=== PATIENT | female | born 1980 | race Caucasian/White ===

== ENCOUNTER → 2018-02-11 15:06 | Outpatient (POV) | payer BC, SELFPAY | PROVIDERS: Visit Provider Physician Assistant | DX: Z00.00 Encounter for general adult medical examination without abnormal findings (principal) ==

== ENCOUNTER 2020-11-26 11:21 | Emergency (ER) | payer OTHER, SELFPAY ==
[2020-11-26] VITALS (8 sets, daily range): BP systolic 129–157; BP diastolic 70–84; PULSE 52–74; RESP 12–22; TEMP 36.5–36.7; O2SAT 96–100; BMI 33.6
--- NOTE | 2020-11-26 11:38 | XR_ITS ---
PROCEDURE: XR CHEST PORTABLE CLINICAL HISTORY: cough COMPARISON: CR CXR CHEST(2 VIEWS-NOT PORTABLE) from 04/19/2013 FINDINGS: The cardiomediastinal silhouette and pulmonary vascularity are within normal limits. The lungs are clear without infiltrates, suspicious nodules, or pleural effusions. No acute bony abnormalities. IMPRESSION: No acute findings. Dictated by: Michelle Menendez 11/26/2020 13:06 Michelle Menendez in [facility] 11/26/2020 13:06
--- NOTE | 2020-11-26 11:55 | HMH.EDDIZZ ---
ED Disposition Clinical Impression: Benign paroxysmal positional vertigo Qualifiers: Laterality: bilateral Qualified Code(s): H81.13 - Benign paroxysmal vertigo, bilateral Migraine Qualifiers: Migraine type: without aura Status migrainosus presence: without status migrainosus Intractability: not intractable Qualified Code(s): G43.009 - Migraine without aura, not intractable, without status migrainosus Disposition: Home, Self-Care Condition on Discharge: Good Instructions: Vertigo Prescriptions: Meclizine HCl [Meclizine 25mg Tab] 25 mg PO BID #10 tab Transmission Status: Pending to [facility] Referrals: Brett Mcclain MD [Primary Care Provider] - - Critical Care Critical Care Time: No Attestation: On 11/26/20, the high probability of a clinically significant, sudden or life threatening deterioration of the following system(s) required my full and direct attention, intervention and personal management. The time I documented below is in addition to time spent performing reported procedures but includes the following listed in this critical care notation. Medical Decision Making - Medical Records Medical records reviewed: Yes: I reviewed the patient's medical records. - Nikita Inquiry Pt receiving controlled substance: No Vital Signs: 11/26/20 11:44 11/26/20 12:01 11/26/20 12:30 Temperature 98.1 F Temperature Source Oral Pulse Rate 60 59 L Pulse Rate [Right] 74 Respiratory Rate 17 22 12 Blood Pressure 138/84 130/70 Blood Pressure [Right Arm] 157/82 H Blood Pressure Mean 107 90 Blood Pressure Mean [Right Arm] 107 02 Sat by Pulse Oximetry 98 99 100 Oxygen Delivery Method Room Air - Lab Data Lab Results 11/26/20 11:59: WBC 8.3, RBC 5.23, Hgb 16.1, Hct 45.9, MCV 87.8, MCH 30.7, MCHC 35.0, RDW 13.5, Plt Count 373, MPV 7.8, Neut % (Auto) 49.4, Lymph % (Auto) 42.8, Mcintosh % (Auto) 5.3, Eos % (Auto) 1.1, Baso % (Auto) 1.4, Neut # (Auto) 4.1, Lymph # (Auto) 3.5, Mcintosh # (Auto) 0.4, Eos # (Auto) 0.1, Baso # (Auto) 0.1 11/26/20 11:59: Sodium 140, Potassium 3.1 L, Chloride 110 H, Carbon Dioxide 18 L, Anion Gap 15.1 H, BUN 12, Creatinine 0.70, Estimated Creat Clear 139, Estimated GFR 94, Est GFR ( Amer) 113, Glucose 90, Calcium 9.7, Total Bilirubin 0.7, AST 35, ALT 30, Alkaline Phosphatase 121, Troponin I < 0.01, Total Protein 8.5 H, Albumin 4.8, Globulin 3.7 H, Albumin/Globulin Ratio 1.3, TSH 2.96 11/26/20 13:23: Urine Color Yellow, Urine Appearance Clear, Urine pH 7.5, Ur Specific [place] 1.015, Urine Protein Negative, Urine Glucose (UA) Negative, Urine Ketones Negative, Urine Blood 2+, Urine Nitrate Negative, Urine Bilirubin Negative, Urine Urobilinogen 0.2, Ur Leukocyte Esterase Negative, Urine RBC 5-10, Urine WBC None, Ur Squamous Epith Cells Occasional, Urine Bacteria None 11/26/20 13:23: Urine HCG, Qual Negative Result diagrams: 11/26/20 11:59 11/26/20 11:59 Orders (Tests/Meds): ED MEDICATIONS Discontinued Medications Generic Name Dose Route Start Last Admin Trade Name Freq PRN Reason Stop Dose Admin Sodium Chloride 1,000 mls @ 999 mls/hr 11/26/20 11:45 11/26/20 11:52 Sod Chlor 0.9% 1000ml Bag IV 11/26/20 12:45 999 mls/hr .Q1H1M MIESHA Administration Meclizine HCl 25 mg 11/26/20 11:40 11/26/20 11:52 Meclizine 25mg Tablet PO 11/26/20 11:41 25 mg ONCE ONE Administration Potassium Chloride 40 meq 11/26/20 12:33 11/26/20 12:49 Potassium Chloride 20meq Tab PO 11/26/20 12:34 40 meq ONCE ONE Administration ORDERS Category Date Time Status Troponin I Q3H Lab 11/26/20 14:45 Ordered Troponin I Q3H Lab 11/26/20 17:45 Ordered - Radiology Data #1 Image(s): Chest Image Reviewed: Yes I reviewed the patient's radiology results, Yes I discussed the image results w/the radiologist Preliminary Findings: Normal/NAD - ECG Data Tracing #1 ECG initial impression date: 11/26/20 ECG initial impression time: 11:59 ECG normal
--- NOTE | 2020-11-26 11:58 | ECG_ITS ---
APPROVED REPORT Exam: Resting ECG HR:59 bpm ECG Measurements Heart Rate 59 AXES WV 120 P 30 QRSd 86 QRS 56 QT 416 T 45 QTc 411 Conclusion Sinus bradycardia Otherwise normal ECG Electronically signed by : Kam Acuna, 11/27/2020 07:41:26
[2020-11-26 12:12] LABS: Basophils # 0.1 K/mm3 (0-0.2); Basophils % 1.4 % (0.1-2.0); Eosinophils # 0.1 K/mm3 (0.0-0.4); Eosinophils % 1.1 % (0.1-12.0); Hematocrit 45.9 % (37.0-47.0); Hemoglobin 16.1 g/dL (12.2-16.2); Lymphocytes # 3.5 K/mm3 (0.7-4.5); Lymphocytes % 42.8 % (10-50); Mean Corpuscular Hemoglobin 30.7 pg (27.0-31.2); Mean Corpuscular Volume 87.8 fl (81-99); Mean Platelet Volume 7.8 fl (7.4-10.4); Monocytes # 0.4 K/mm3 (0.1-1.0); Monocytes % 5.3 % (1.7-9.3); Neutrophils # 4.1 K/mm3 (1.8-7.8); Neutrophils % 49.4 % (37.0-80.0); Platelet Count 373 K/mm3 (142-424); Red Blood Count 5.23 M/mm3 (4.20-5.40); Red Cell Distribution Width 13.5 % (11.5-17.5); White Blood Count 8.3 K/mm3 (4.8-10.8)
[2020-11-26 12:17] LABS: Chloride 110 mmol/L (98-107); Potassium 3.1 mmoL/L (3.5-5.1); Sodium 140 mmol/L (136-145)
[2020-11-26 12:20] LABS: Alanine Aminotransferase 30 U/L (12-78); Albumin Level 4.8 g/dl (3.5-5.0); Albumin/Globulin Ratio 1.3 (1.1-1.8); Alkaline Phosphatase 121 U/L (38-126); Anion Gap 15.1 mEq/L (5-15); Aspartate Amino Transferase 35 U/L (14-36); Bilirubin,Total 0.7 mg/dl (0.2-1.3); Blood Urea Nitrogen 12 mg/dl (7-17); Carbon Dioxide 18 mmol/L (22.0-30.0); Creatinine Clearance Estimated 139 mL/min (50-200); Estimated Glomerular Filt Rate 94 ml/min (>60); GFR (African American) 113 ML/MIN (>60); Globulin 3.7 g/dL (1.3-3.2); Total Protein,Serum 8.5 g/dl (6.3-8.2)
[2020-11-26 12:21] LABS: Calcium 9.7 mg/dl (8.4-10.2); Glucose 90 mg/dl (74-100)
[2020-11-26 12:34] LABS: Troponin I < 0.01 ng/ml (0.00-0.034)
[2020-11-26 12:52] LABS: Thyroid Stimulating Hormone 2.96 uIU/mL (0.465-4.68)
--- NOTE | 2020-11-26 13:21 | PC.NURSE ---
pt up to restroom. Pt states she isn't dizzy now but is sob.
[2020-11-26 13:33] LABS: Microscopic, Urine URINE MICROSCOPIC (MICROSCOPIC)
[2020-11-26 13:36] LABS: Appearance,Urine CLEAR (Clear); Bilirubin,Urine Negative (Negative); Blood, Urine 2+ (Negative); Color,Urine YELLOW (Yellow); Glucose,Urine (UA) Negative (Negative); Ketones,Urine Negative (Negative); Leukocyte Esterase,Urine Negative (Negative); Nitrate,Urine Negative (Negative); PH,Urine 7.5 (5.0-8.5); Protein,Urine Negative (Negative); Specific Gravity, Urine 1.015 (1.005-1.030); Urobilinogen,Urine 0.2 EU/dl (0.2)
[2020-11-26 13:51] LABS: Squamous Epithelial Cell,Urine Occasional #/hpf (0-5); Urine Pregnancy, HCG Qual. Negative (Negative)
== END 2020-11-26 14:46 | disposition home or self-care (01) ==
PROVIDERS: Emergency Provider Emergency Medicine; PCP Family Medicine
DX: H81.13 Benign paroxysmal vertigo, bilateral (principal); G43.009 Migraine without aura, not intractable, without status migrainosus; E03.9 Hypothyroidism, unspecified; Z79.899 Other long term (current) drug therapy
CPT/HCPCS: 71045; 80053; 81001; 81025; 84443; 84484; 85025; 93005; 99282

== ENCOUNTER → 2021-07-12 16:54 | Outpatient (CLI) | payer OTHER, SELFPAY ==
[2021-07-12 17:36] LABS: Coronavirus 19, PCR Not Detected (NotDetected); Influenza A, PCR Not Detected (NotDetected); Influenza B, PCR Not Detected (NotDetected)
[2021-07-12 19:50] LABS: Basophils # 0.1 K/mm3 (0-0.2); Basophils % 0.9 % (0.1-2.0); Eosinophils # 0.1 K/mm3 (0.0-0.4); Hematocrit 41.7 % (37.0-47.0); Hemoglobin 14.4 g/dL (12.2-16.2); Lymphocytes # 3.3 K/mm3 (0.7-4.5); Lymphocytes % 35.2 % (10-50); Mean Corpuscular HGB Conc 34.4 g/dL (31.8-35.4); Mean Corpuscular Hemoglobin 30.9 pg (27.0-31.2); Mean Corpuscular Volume 89.9 fl (81-99); Mean Platelet Volume 8.7 fl (7.4-10.4); Monocytes # 0.6 K/mm3 (0.1-1.0); Monocytes % 6.5 % (1.7-9.3); Neutrophils # 5.3 K/mm3 (1.8-7.8); Neutrophils % 56.3 % (37.0-80.0); Platelet Count 380 K/mm3 (142-424); Red Blood Count 4.65 M/mm3 (4.20-5.40); Red Cell Distribution Width 13.3 % (11.5-17.5); White Blood Count 9.4 K/mm3 (4.8-10.8)
== END ==
PROVIDERS: PCP Nurse Practitioner; Visit Provider Nurse Practitioner
DX: Z20.822 Contact with and (suspected) exposure to COVID-19 (principal)
CPT/HCPCS: 36415; 85025; C9803; U0003; U0005

== ENCOUNTER 2021-12-17 20:09 | Emergency (ER) | payer OTHER, SELFPAY ==
[2021-12-17 20:20] VITALS: BP 124/79; PULSE 102; RESP 20; TEMP 37.1; O2SAT 99; BMI 36.8
--- NOTE | 2021-12-17 20:37 | HMH.EDUTC ---
[place] Disposition Clinical Impression: Bronchitis Sinusitis Qualifiers: Sinusitis location: unspecified location Chronicity: acute Recurrence: non-recurrent Qualified Code(s): J01.90 - Acute sinusitis, unspecified Disposition: Home, Self-Care Condition on Discharge: Good Instructions: DI for Sinusitis, DI for Acute Bronchitis Additional Instructions: Drink plenty of fluids. Take tylenol or ibuprofen for pain or fever. Take the medications as directed. Follow up with your regular doctor. GO TO THE ER FOR ANY WORSENING SYMPTOMS Don't start the oral steroids until tomorrow, since you had the shot here today. The cough medication (promethazine dm) will make you drowsy, so don't drive or operate heavy machinery after taking it. Prescriptions: Promethazine/Dextromethorphan [Promethazine-Dm Syrup] 5 ml PO Q6HP PRN #240 ml PRN Reason: Cough Transmission Status[facility] methylPREDNISolone [Medrol] 4 mg PO DIRECTED 6 Days #21 packet Transmission Status: [facility] guaiFENesin [Mucinex 600mg tablet] 1 - 2 tab PO BIDP PRN #30 tab PRN Reason: Congestion Transmission Status: Received by [facility] Cefdinir [Omnicef 300mg Capsule] 300 mg PO BID #20 cap Transmission Status: Received by [facility] Referrals: Brett Mcclain MD [Primary Care Provider] - Time of Disposition: 20:58 Medical Decision Making - Medical Records Medical records reviewed: No: I reviewed the patient's medical records. - Nikita Inquiry Pt receiving controlled substance: No Vital Signs: 12/17/21 20:20 12/17/21 21:19 Temperature 98.8 F 98.8 F Temperature Source Oral Pulse Rate 102 H Pulse Rate [Left Radial] 102 H Respiratory Rate 20 20 Blood Pressure 124/79 Blood Pressure [Right Arm] 124/79 Blood Pressure Mean [Right Arm] 94 02 Sat by Pulse Oximetry 99 - Lab Data Lab results reviewed: Yes: I reviewed the patient's lab results. Lab Results 12/17/21 20:19: Group A Strep Rapid Negative Orders (Tests/Meds): ED MEDICATIONS Discontinued Medications Generic Name Dose Route Start Last Admin Trade Name Freq PRN Reason Stop Dose Admin Ceftriaxone Sodium 1 gm 12/17/21 20:48 12/17/21 21:06 Ceftriaxone 1gm Vial IM 12/17/21 20:49 1 gm ONCE ONE Administration Lidocaine HCl 0 ml 12/17/21 20:48 12/17/21 21:06 Lidocaine 1% 5ml Pf Vial IM 12/17/21 20:49 2 ml ONCE ONE Administration Methylprednisolone Sodium Succinate 125 mg 12/17/21 20:48 12/17/21 21:05 Methylprednisolone Sod Succ 125mg Vial IM 12/17/21 20:49 125 mg ONCE ONE Administration ORDERS Category Date Time Status Strep Screen Confirmation Stat Micro 12/17/21 20:19 Received [place] HPI - General Stated complaint: drainage, loss of voice, sore throat Time Seen by Provider: 12/17/21 20:37 Mode of Arrival: Ambulatory Source of Information: Patient Description of Symptoms (Recalled from Triage Doc. by RN): pt c/o of cough and sore throat that began saturday 12/16. pt c/o congestion that has been ongoing for 2 weeks. HEENT Symptoms (Recalled from RN notes): No Resp Symptoms (Recalled from RN notes): Yes Skin Symptoms (Recalled from RN notes): No MS Symptoms (Recalled from RN notes): No Functional Status (Recalled from RN notes): wnl - History of Present Illness Provider Complaint: She states that she has had sinus congestion for the past 2 weeks. She denies nay fever or chills. - Related Data Home Medications Medication Instructions Recorded Confirmed atorvastatin 20 mg tablet 20 mg PO ONCE 12/11/17 03/30/21 levothyroxine 25 mcg tablet 25 mcg PO ONCE 12/11/17 03/30/21 Previous Rx's Medication Instructions Recorded Meclizine HCl [Meclizine 25mg Tab] 25 mg PO BID #10 tab 11/26/20 norgestrel 0.3 mg-ethinyl See Rx Instructions .ROUTE 07/18/21 estradiol 30 mcg tablet .COMPLEX #84 tablet Cefdinir [Omnicef 300mg Capsule
[2021-12-17 20:55] LABS: Strep Scrn Group A (Rapid) Negative (Negative)
[2021-12-17 21:19] VITALS: BP 124/79; PULSE 102; RESP 20; TEMP 37.1
== END 2021-12-17 21:26 | disposition home or self-care (01) ==
PROVIDERS: Emergency Provider Nurse Practitioner Family; PCP Family Medicine
DX: J01.90 Acute sinusitis, unspecified (principal); E03.9 Hypothyroidism, unspecified; Z79.52 Long term (current) use of systemic steroids; Z79.899 Other long term (current) drug therapy; Z82.49 Family history of ischemic heart disease and other diseases of the circulatory system; Z83.3 Family history of diabetes mellitus; Z82.5 Family history of asthma and other chronic lower respiratory diseases; Z83.438 Family history of other disorder of lipoprotein metabolism and other lipidemia; Z83.49 Family history of other endocrine, nutritional and metabolic diseases
CPT/HCPCS: 87430; 96372; 99213; G0463; J0696

== ENCOUNTER → 2022-08-24 15:54 | Outpatient (CLI) | payer OTHER, SELFPAY ==
--- NOTE | 2022-08-24 15:54 | MM_ITS ---
PROCEDURE INFORMATION: Exam: Bilateral Screening 3D Mammography Exam date and time: 08/24/2022 3:55 PM Age: 42 years old Clinical indication: Baseline. Her mother had breast cancer in her late 30s. TECHNIQUE: Imaging protocol: Bilateral Screening tomosynthesis and 2D mammography including computer-aided detection (CAD) when performed. COMPARISON: No relevant prior studies available. FINDINGS: MAMMOGRAPHY: Breast composition: There are scattered areas of fibroglandular density. Mass: None. Architectural distortion: None. Calcifications: No suspicious calcifications. Asymmetric density: None. Skin thickening: None. Axillary adenopathy: None. IMPRESSION: No mammographic evidence of malignancy. Annual screening is recommended unless otherwise clinically indicated. ASSESSMENT: BI-RADS Category 1: Negative
== END ==
PROVIDERS: PCP Family Medicine; Visit Provider Nurse Practitioner Obstetrics & Gynecology
DX: Z12.31 Encounter for screening mammogram for malignant neoplasm of breast (principal)
CPT/HCPCS: 77063; 77067

== ENCOUNTER → 2022-10-27 09:35 | Outpatient (CLI) | payer OTHER, SELFPAY ==
[2022-10-27 10:57] LABS: Alanine Aminotransferase 23 U/L (12-78); Albumin Level 4.3 g/dl (3.5-5.0); Albumin/Globulin Ratio 1.5 (1.1-1.8); Alkaline Phosphatase 123 U/L (38-126); Anion Gap 10.3 mEq/L (5-15); Aspartate Amino Transferase 27 U/L (14-36); Bilirubin,Total 0.7 mg/dl (0.2-1.3); Blood Urea Nitrogen 12 mg/dl (7-17); Carbon Dioxide 24 mmol/L (22.0-30.0); Chloride 106 mmol/L (98-107); Chol/HDL Ratio 3.3 (1-3.5); Cholesterol 140 mg/dl (140-200); Estimated Glomerular Filt Rate 79 ml/min (>60); GFR (African American) 96 ML/MIN (>60); Globulin 2.8 g/dL (1.3-3.2); Glucose 88 mg/dl (74-100); HDL Cholesterol 42 mg/dl (40-60); Potassium 4.3 mmoL/L (3.5-5.1); Sodium 136 mmol/L (136-145); Total Protein,Serum 7.1 g/dl (6.3-8.2); Triglycerides 70 mg/dl (30-150); VLDL Cholesterol 14 mg/dL (0-40)
[2022-10-27 10:58] LABS: Hemoglobin A1C 4.7 % (4.0-6.0)
[2022-10-27 11:08] LABS: Direct LDL Cholesterol 81.74 mg/dL (100-129)
[2022-10-27 11:13] LABS: Free T4 (Free Thyroxine) 0.97 ng/dl (0.78-2.19)
[2022-10-27 11:28] LABS: Thyroid Stimulating Hormone 3.87 uIU/mL (0.465-4.68)
== END ==
PROVIDERS: PCP Family Medicine; Visit Provider Physician Assistant
DX: E78.5 Hyperlipidemia, unspecified (principal); E03.9 Hypothyroidism, unspecified; Z13.1 Encounter for screening for diabetes mellitus; Z79.899 Other long term (current) drug therapy
CPT/HCPCS: 36415; 80053; 80061; 83036; 84439; 84443

== ENCOUNTER 2023-09-27 14:23 | Outpatient (CLI) | payer OTHER, SELFPAY ==
--- NOTE | 2023-09-27 14:23 | MM_ITS ---
PROCEDURE INFORMATION: Exam: MG Bilateral Screening 3D Mammography Exam date and time: 09/27/2023 2:16 PM Age: 43 years old Clinical indication: Screening examination TECHNIQUE: Imaging protocol: Bilateral Screening tomosynthesis and 2D mammography including computer-aided detection (CAD) when performed. COMPARISON: MG MM DIG SCREENING MAMM BI W/CAD 08/24/2022 3:55 PM FINDINGS: MAMMOGRAPHY: Breast composition: There are scattered areas of fibroglandular density. Mass: None. Architectural distortion: None. Calcifications: No suspicious calcifications. Asymmetric density: None. Skin thickening: None. Axillary adenopathy: None. IMPRESSION: No mammographic evidence of malignancy. Annual screening is recommended unless otherwise clinically indicated. ASSESSMENT: BI-RADS Category 1: Negative
== END 2023-09-27 23:59 ==
LOC: RAD 14:23
PROVIDERS: PCP Family Medicine; Visit Provider Nurse Practitioner Obstetrics & Gynecology
DX: Z12.31 Encounter for screening mammogram for malignant neoplasm of breast (principal)
CPT/HCPCS: 77063; 77067

== ENCOUNTER 2023-11-05 16:47 | Emergency (ER) | payer OTHER, SELFPAY ==
[2023-11-05 17:25] VITALS: BP 142/88; PULSE 66; RESP 20; TEMP 37.2; O2SAT 98; BMI 39.1
--- NOTE | 2023-11-05 18:09 | EXP.UTC ---
Discharge Plan Disposition Patient Disposition: Home, Self-Care Condition: Good Prescriptions Prescriptions: New cephalexin 500 mg tablet 500 mg PO QID 7 Days Qty: 28 0RF mupirocin calcium 2 % cream 1 applic topical TID 10 Days Qty: 30 0RF Rx Instructions: apply to lesions on skin as directed No Action atorvastatin 20 mg tablet 20 mg PO ONCE levothyroxine [Synthroid] 25 mcg tablet 25 mcg PO ONCE phentermine 37.5 mg capsule 37.5 mg PO DAILY Patient Comments: TAKE 1 CAPSULE BY MOUTH ONCE DAILY levonorgestrel-ethinyl estrad [Lutera (28)] 0.1-20 mg-mcg tablet See Rx Instructions .ROUTE .COMPLEX Qty: 84 4RF Dose Instruction: TAKE 1 TABLET DAILY Rx Instructions: TAKE 1 TABLET DAILY Referrals Follow up/Referrals: Brett Mcclain MD [Primary Care Provider] - See instructions Activity Restrictions/Add. Instructions Additional Instructions/Restrictions: Clean areas with antibacterial soap and water Take antibitoics as prescribed Use topical ointment as prescribed Follow up with your Family Doctor if no improvement or any worsening of symptoms Straight to ER if any life threatening symptoms Clinical Impressions Clinical Impression: Skin problem Instructions Patient Instructions: DI for Cellulitis -- Adult, Mupirocin, Cephalexin Discharge ED Provider: Chante Matute [facility] General Stated complaint: poss insect bites Mode of Arrival: Ambulatory Source of Information: Patient Limitations: No Limitations Time Seen by Provider: 11/05/23 18:09 Description of Symptoms (Recalled from Triage Doc. by RN): PATIENT C/O POSSIBLE BUG BITES TO BILATERAL ARMS AND HANDS THAT SHE NOTICED Sunday. REDNESS AND SWELLING NOTED TO SITES ON HANDS HEENT Symptoms (Recalled from RN notes): No Resp Symptoms (Recalled from RN notes): No Skin Symptoms (Recalled from RN notes): Yes MS Symptoms (Recalled from RN notes): No Functional Status (Recalled from RN notes): WNL History of Present Illness Provider Complaint: Patient states that she recenltly went to her [employer] and was outside and was bitten by bugs States that she has several bites on her arms and hands and a coulple was looking red and swollen so she came in worried that they may be infected Related Data Home Medications Medication Instructions Recorded Confirmed atorvastatin 20 mg tablet 20 mg PO ONCE 12/11/17 11/05/23 levothyroxine 25 mcg tablet 25 mcg PO ONCE 12/11/17 11/05/23 (Synthroid) phentermine 37.5 mg capsule 37.5 mg PO DAILY 07/09/23 11/05/23 Previous Rx's Medication Instructions Recorded levonorgestrel-ethinyl estradiol See Rx Instructions .Route 08/10/23 0.1 mg-20 mcg tablet (Lutera (28)) .COMPLEX #84 tabs cephalexin 500 mg tablet 500 mg PO QID 7 days #28 tabs 11/05/23 mupirocin calcium 2 % topical cream 1 applic topical TID 10 days #30 11/05/23 grams Allergies Allergy/AdvReac Type Severity Reaction Status Date / Time No Known Allergies Allergy Verified 07/09/23 08:57 Worker's Comp Is this a Worker's Comp case?: No [facility] Disclaimer: The information contained in this section may have been updated after the patient was seen, as this information can be updated by other users. Surgical History History of tubal ligation Social History Smoking Status: Never smoker alcohol intake: never substance use type: denies use current occupational status: employed Travel in the last 8 weeks: None ROS Obtained: Yes All systems reviewed & no additional complaints except as documented and Yes Systems reviewed as appropriate & no additional complaints except as documented Constitutional Constitutional: Reports system reviewed and no additional complaints, except as documented and Reports as per HPI ENT Ears, Nose, Mouth, and Throat: Reports system reviewed and no additional complaints, except as documented and Reports as per HPI Cardiovascular Cardiovascular: Reports system reviewed and no additional complaints, except as documented and Reports as per HPI Respiratory Respiratory: Reports system reviewed and no additional complaints, except as documented and Reports as per HPI Gastrointestinal Gastrointestingal: Reports system reviewed and no additional complaints, except as documented and as per HPI Musculoskeletal Musculoskeletal: Reports system reviewed and no additional complaints, except as documented and Reports as per HPI Integumentary/Breasts Skin/Breast: Reports system reviewed and no additional complaints, except as documented and Reports as per HPI Comments: bug bites that is inflammed on her hands and arms Physical Exam General General appearance: alert and in no apparent distress Respiratory Respiratory exam: Present normal lung sounds bilaterally; Absent respiratory distress or wheezes Cardiovascular Cardiovascular exam: Present regular rate, normal rhythm and normal heart sounds Neurological Exam Neurological exam: Present alert, oriented X3 and normal gait Skin Skin exam: Present other (several bites on arms and hands with a couple appearing to have mild cellulitis around them with redness and warmth) Medical Decision Making Nikita Inquiry Pt receiving controlled substance: No Nikita was queried for this patient: No Vital Signs: 11/05/23 17:25 Temperature 98.9 F Temperature Source Oral Pulse Rate [Left Brachial] 66 Respiratory Rate 20 Blood Pressure [Left Arm] 142/88 H Blood Pressure Mean [Left Arm] 106 Blood Pressure Source [Left Arm] Automatic Cuff Blood Pressure Position [Left Arm] Sitting 02 Sat by Pulse Oximetry 98 Oxygen Delivery Method Room Air
[2023-11-05 18:12] VITALS: BP 142/88; PULSE 66; RESP 20; TEMP 37.2; O2SAT 98
== END 2023-11-05 18:23 | disposition home or self-care (01) ==
PROVIDERS: Emergency Provider Nurse Practitioner; PCP Family Medicine
DX: S60.561A Insect bite (nonvenomous) of right hand, initial encounter (principal); S60.562A Insect bite (nonvenomous) of left hand, initial encounter; W57.XXXA Bitten or stung by nonvenomous insect and other nonvenomous arthropods, initial encounter
CPT/HCPCS: 99212; 99214; G0463

== ENCOUNTER 2024-08-01 11:22 | Outpatient (CLI) | payer OTHER, SELFPAY ==
[2024-08-01 11:46] LABS: Basophils # 0.1 K/mm3 (0-0.2); Basophils % 0.7 % (0.1-2.0); Eosinophils # 0.1 K/mm3 (0.0-0.4); Eosinophils % 1.1 % (0.1-12.0); Hematocrit 43.5 % (37.0-47.0); Hemoglobin 14.2 g/dL (12.2-16.2); Lymphocytes # 3.3 K/mm3 (0.7-4.5); Lymphocytes % 34.5 % (10-50); Mean Corpuscular HGB Conc 32.8 g/dL (31.8-35.4); Mean Corpuscular Hemoglobin 29.8 pg (27.0-31.2); Mean Corpuscular Volume 90.9 fl (81-99); Mean Platelet Volume 8.2 fl (7.4-10.4); Monocytes # 0.4 K/mm3 (0.1-1.0); Monocytes % 4.5 % (1.7-9.3); Neutrophils # 5.6 K/mm3 (1.8-7.8); Neutrophils % 59.3 % (37.0-80.0); Platelet Count 294 K/mm3 (142-424); Red Blood Count 4.78 M/mm3 (4.20-5.40); Red Cell Distribution Width 14.1 % (11.5-17.5); White Blood Count 9.4 K/mm3 (4.8-10.8)
[2024-08-01 12:00] LABS: Alanine Aminotransferase 23 U/L (12-78); Albumin Level 4.2 g/dl (3.5-5.0); Albumin/Globulin Ratio 1.5 (1.1-1.8); Alkaline Phosphatase 121 U/L (38-126); Anion Gap 12.6 mEq/L (5-15); Aspartate Amino Transferase 30 U/L (14-36); Bilirubin,Total 0.6 mg/dl (0.2-1.3); Blood Urea Nitrogen 13 mg/dl (7-17); Calcium 9.6 mg/dl (8.4-10.2); Carbon Dioxide 23 mmol/L (22.0-30.0); Chloride 108 mmol/L (98-107); Estimated Glomerular Filt Rate 79 ml/min (>60); GFR (African American) 95 ML/MIN (>60); Globulin 2.8 g/dL (1.3-3.2); Glucose 83 mg/dl (74-100); Potassium 4.6 mmoL/L (3.5-5.1); Sodium 139 mmol/L (136-145)
[2024-08-02 09:00] LABS: HBsAg Screen Negative (Negative); HCV Ab Non Reactive (Non Reactive); Hep A Ab, IGM Negative (Negative); Hep B Core Ab, IgM Negative (Negative)
[2024-08-05 18:18] LABS: QuantiFERON-TB Gold Plus Negative (Negative)
== END 2024-08-01 23:59 | disposition home or self-care (01) ==
PROVIDERS: PCP Family Medicine; Visit Provider Family Medicine
DX: R63.5 Abnormal weight gain (principal); Z11.1 Encounter for screening for respiratory tuberculosis; Z68.35 Body mass index [BMI] 35.0-35.9, adult
CPT/HCPCS: 36415; 80053; 80074; 85025; 86480

== ENCOUNTER 2024-10-08 16:18 | Outpatient (CLI) | payer OTHER, SELFPAY ==
--- NOTE | 2024-10-08 16:22 | MM_ITS ---
PROCEDURE INFORMATION: Exam: MG Bilateral Screening 3D Mammography Exam date and time: 10/08/2024 4:24 PM Age: 44 years old Clinical indication: Screening exam . TECHNIQUE: Imaging protocol: Bilateral Screening tomosynthesis and 2D mammography including computer-aided detection (CAD) when performed. COMPARISON: 1. MG MM DIG SCREENING MAMM BI W/CAD 09/27/2023 2:16 PM 2. MG MM DIG SCREENING MAMM BI W/CAD 08/24/2022 3:55 PM FINDINGS: MAMMOGRAPHY: Breast composition: The breasts are heterogeneously dense, which may obscure small masses. Mass: No suspicious masses. Architectural distortion: None. Calcifications: No suspicious calcifications. Asymmetric density: None. Skin thickening: None. Axillary adenopathy: None. IMPRESSION: No mammographic evidence of malignancy. Annual screening is recommended unless otherwise clinically indicated. ASSESSMENT: BI-RADS Category 1: Negative.
== END 2024-10-08 23:59 | disposition home or self-care (01) ==
LOC: RAD 16:22
PROVIDERS: PCP Family Medicine; Visit Provider Nurse Practitioner Obstetrics & Gynecology
DX: Z12.31 Encounter for screening mammogram for malignant neoplasm of breast (principal)
CPT/HCPCS: 77063; 77067

== ENCOUNTER 2025-02-16 10:01 | Outpatient (CLI) | payer OTHER, SELFPAY ==
--- OUTSIDE RECORDS SUMMARY | 2024-08-01 06:45 | XMS_ITS ---
Author Organization [facility] Address [address] [place] [id number] Care Team Providers Care Operator Receptionist Name Role Phone Cinthya Mackenzie Primary Care Provider Cinthya MACKENZIE Unavailable Unavailable Allergies Allergen (clinical drug ingredient) Drug/Non Drug Allergy documented on EMR Reaction Allergy Type Onset Date Status TEVA - ANTIBIOTIC (uncoded) stomach upset Allergy Active Results Component Value Reference Range Notes H-CBC Reviewed date:08/04/2024 10:04:35 AM Interpretation: Normal Performing Lab: Notes/Report: WBC 9.4 4.8-10.8 K/mm3 RBC 4.78 4.20-5.40 M/mm3 HGB 14.2 12.2-16.2 g/dL HCT 43.5 37.0-47.0 % MCV 90.9 81-99 fl MCH 29.8 27.0-31.2 pg MCHC 32.8 31.8-35.4 g/dL RDW 14.1 11.5-17.5 % PLT 294 142-424 K/mm3 MPV 8.2 7.4-10.4 fl NE% 59.3 37.0-80.0 % LY% 34.5 10-50 % MO% 4.5 1.7-9.3 % EO% 1.1 0.1-12.0 % BA% 0.7 0.1-2.0 % NE# 5.6 1.8-7.8 K/mm3 LY# 3.3 0.7-4.5 K/mm3 MO# 0.4 0.1-1.0 K/mm3 EO# 0.1 0.0-0.4 K/mm3 BA# 0.1 0-0.2 K/mm3 H-Quantiferon TB Reviewed date:08/07/2024 01:05:38 PM Interpretation:Negative Performing Lab: Notes/Report: QTB.3 Comment . QuantiFERON-TB Gold Plus is a qualitative indirect test for M tuberculosis infection (including disease) and is intended for use in conjunction with risk assessment, radiography, and other medical and diagnostic evaluations. The QuantiFERON-TB Gold Plus result is determined by subtracting the Nil value from either TB antigen (Ag) value. The Mitogen tube serves as a control for the test. QTB.4 0.08 . IU/mL QTB.5.0 0.16 . IU/mL QTB.6 0.01 . IU/mL QTB.7 >10.00 . IU/mL QTB.8 Negative Negative No response to M tuberculosis antigens detected. Infection with M tuberculosis is unlikely, but high risk individuals should be considered for additional testing (ATS/IDSA/CDC Clinical Practice Guidelines, 2017). The reference range is an Antigen minus Nil result of <0.35 IU/mL. The specimen received for QuantiFERON testing was incubated by the ordering institution. Specific procedures outlined in our Directory of Services and in the package insert for the QuantiFERON Gold (In Tube) test must be followed to enable for proper stimulation of cells for the production of interferon gamma. Chemiluminescence immunoassay methodology Performed at: [facility] [id number] [employer] Division Manager: Jagjit Jurado PhD, Phone: [phone] H-CMP Reviewed date:08/04/2024 10:04:52 AM Interpretation: Normal Performing Lab: Notes/Report: NA 139 136-145 mmol/L K 4.6 3.5-5.1 mmoL/L CL 108 98-107 mmol/L CO2 23 22.0-30.0 mmol/L GAP 12.6 5-15 mEq/L BUN 13 7-17 mg/dl CREATT 0.80 0.52-1.04 mg/dl GFRAA 95 >60 ML/MIN EGFR 79 >60 ml/min GLU 83 74-100 mg/dl CA 9.6 8.4-10.2 mg/dl BILIT 0.6 0.2-1.3 mg/dl AST 30 14-36 U/L ALT 23 12-78 U/L TP 7.0 6.3-8.2 g/dl ALB 4.2 3.5-5.0 g/dl GLOB 2.8 1.3-3.2 g/dL AGRATIO 1.5 1.1-1.8 ALP 121 38-126 U/L H-Hepatitis Panel Reviewed date:08/04/2024 09:08:25 AM Interpretation: Performing Lab: Notes/Report: REASON FOR VISIT 3 months Medications Medication SIG (Take, Route, Frequency, Duration) Notes Start Date End Date Status Flonase Allergy Relief 50 MCG/ACT as directed in each nostril once a day for 30 day(s) 07/18/2021 Active Cryselle-28 0.3-30 MG-MCG 1 tab(s) orall y once a day 09/04/2019 Active Phentermine HCl 37.5 MG 1 cap(s) orally once a day 08/01/2024 Active Atorvastatin Calcium 20 MG TAKE 1 TABLET AT BEDTIME for 90 Active Synthroid 25 MCG TAKE 1 TABLET ONCE D AILY for 90 Active Vital Signs Blood pressure systolic 122 mm Hg 08/01/20 24 Blood pressure diastolic 72 mm Hg 024 Heart Rate 70 /min 08/01/2024 Height 62 in 08/01/2024 Weight 193.4 lbs 08/01/2024 BMI 35.37 kg/m2 08/01/2024 Encounters Encounter Location Date Provider Diagnosis [facility] [address], [place] [id number] 08/01/2024 Cinthya Mackenzie BMI 35.0-35.9,adult Z68.35 and Weight gain R63.5 Assessments Encounter Date Diagnosis (ICD Code) Assessment Notes Treatment Notes Treatment Clinical Notes Section Notes 08/01/2024 BMI 35.0-35.9,adult (ICD-10 - Z68.35) 08/01/2024 Weight gain (ICD-10 - R63.5) Plan Of Treatment Medication Medication Name Sig Start Date Stop Date Notes Phentermine HCl 37.5 MG 1 cap(s) orally once a day 024 Next Appt Details Follow Up: 3 Months, Reason: Provider Name:Cinthya Mcmahon er, 04/13/2025 03:45:00 PM, [address], [address], [place], [place], [id number], Progress Notes * SERAFIN YEDOB:1980 ([age] yo F)Acc No.[id number]:08/01/2024 Progress Notes Patient: SERAFIN CAPONE Provider: Cinthya Mackenzie M.D. :1980 A ge:44 Y S ex:Female Date:08/01/2024 Address:[address] [place] [address] [address], [place], [id number] Subjective: * Chief Complaints: * 1 . 3 months. * HPI: C onstitutional: The patient is here for a check up on Weight management. Pt states she is doing good and denies any new concerns. Pt is not fasting. * ROS: D ERMATOLOGY: no R artie. n o H anson. G ASTROENTEROLOGY: no N ausea. n o V omiting. n o D iarrhea.? U ROLOGY: no D ifficulty urinating. n o B lood in urine. * Medical History: P soriasis. * Surgical History: t ubal ligation 2012, wisdom teeth extractions x3 . * Hospitalization/Major Diagno stic Procedure: c hild x 2 . * Family History: F ather: alive, diagnosed with Diabetes. M other: alive. S iblings: alive. C hildren: alive. 1 brother(s) , 2 sister(s) - healthy. 1 son(s) , 1 daughter(s) - healthy. . * Social History: C URRENT TOBACCO USE S moking Status: P atient does NOT smoke, F ormer Smoker:?Yes, Q uit smokin 011. * Medications: T aking Cryselle-28 0.3-30 MG-MCG Tablet 1 tab(s) orally once a day , Taking Flonase Allergy Relief 50 MCG/ACT Suspension as directed in each nostril once a day , Taking Synthroid 25 MCG Tablet TAKE 1 TABLET ONCE DAILY , Taking Atorvastatin Calcium 20 MG Tablet TAKE 1 TABLET AT BEDTIME , Taking Phentermine HCl 37.5 MG Capsule 1 cap(s) orally once a day , Medication List reviewed and reconciled with the patient * Allergies: T MALCOLM - ANTIBIOTIC: stomach upset. Objective: * Vitals: W t:193.4, Temp:98.1, BP:122/72, HR:70, Nurse:COY, Ht: 62, BMI:35.37. * Examination: G eneral Examination: General Appearance: N AD. HEENT: u nremarkable. Oral cavity: n o lesions, mucosa moist and WNL, no erythema. Neck: s upple, no lymphadenopathy. Chest: n ormal shape and expansion. Heart: R SR. Lungs: c lear to auscultation. Abdomen: soft and nontender. Neurologic Exam: I ntact, gait normal. Skin: n ormal, s ome erythematous r artie of the elbows. Peripheral pulses: n ormal (2+) bilaterally. Extremities: n o leg edema. Assessment: * Assessment: 1. B SD 35.0-35.9,adult - Z68.35 (Primary) 2 . W eight gain - R63.5 ? Plan: * Treatment: * Labs: * L ab: H-Quantiferon TB (Collection Date & Time - 08/01/2024 11:27 AM) N egative Value Reference Range Q TB.3 Comment . - * Q TB.4 0.08 . - IU/mL * Q TB.5.0 0.16 . - IU/mL * Q TB.6 0.01 . - IU/mL * Q TB.7 >10.00 . - IU/mL * Q TB.8 Negative Negative - * Valery Oneil 08/07/2024 1:05 :23 PM > Pt informed ?Lab: H-CBC (Collection Date & Time - 08/01/2024 11:27 AM)?Normal* Value Reference Range W BC 9.4 4.8-10.8 - K/mm3 * R BC 4.78 4.20-5.40 - M/mm3 * H GB 14.2 12.2-16.2 - g/dL * H CT 43.5 37.0-47.0 - % * M CV 90.9 81-99 - fl * M CH 29.8 27.0-31.2 - pg * M CHC 32.8 31.8-35.4 - g/dL * R DW 14.1 11.5-17.5 - % * P LT 294 142-424 - K/mm3 * M PV 8.2 7.4-10.4 - fl * N E% 59.3 37.0-80.0 - % * L Y% 34.5 10-50 - % * M O% 4.5 1.7-9.3 - % * E O% 1.1 0.1-12.0 - % * B A% 0.7 0.1-2.0 - % * N E# 5.6 1.8-7.8 - K/mm3 * L Y# 3.3 0.7-4.5 - K/mm3 * M O# 0.4 0.1-1.0 - K/mm3 * E O# 0.1 0.0-0.4 - K/mm3 * B A# 0.1 0-0.2 - K/mm3 * Valery Oneil 08/04/2024 10:04 :29 AM > Pt informed ?Lab: H-CMP (Collection Date & Time - 08/01/2024 11:27 AM)?Normal* Value Reference Range N A 139 136-145 - mmol/L * K 4.6 3.5-5.1 - mmoL/L * C L 108 H 98-107 - mmol/L * C O2 23 22.0-30.0 - mmol/L * G AP 12.6 5-15 - mEq/L * B UN 13 7-17 - mg/dl * C REATT 0.80 0.52-1.04 - mg/dl * G FRAA 95 >60 - ML/MIN * E GFR 79 >60 - ml/min * G JAYME 83 74-100 - mg/dl * C A 9.6 8.4-10.2 - mg/dl * B ILIT 0.6 0.2-1.3 - mg/dl * A ST 30 14-36 - U/L * A LT 23 12-78 - U/L * T P 7.0 6.3-8.2 - g/dl * A LB 4.2 3.5-5.0 - g/dl * G LOB 2.8 1.3-3.2 - g/dL * A GRATIO 1.5 1.1-1.8 - * A LP 121 38-126 - U/L * Valery Oneil 08/04/2024 10:04 :47 AM > Pt informed ?Lab: H-Hepatitis Panel (Collection Date & Time - 08/04/2024)* see duplicate order * Follow Up: 3 Months * Billing Information: * Visit Code: 36860 Office Visit, Est Pt., Level 4. * Procedure Codes: * Electronic signature of Cinthya Mackenzie MD on 02/16/2025 at 10:26 AM EDT Sign off status: Pending * Provider: Cinthya Mackenzie M.D. Date: 1 10/02/2023 Generated for Papi hernandez/Dominique/eTransmitting on: 0 02/16/2025 10:26 AM EDT History and Physical Notes * Examination Category Sub-Category Detail Notes Category Not es General Examination HEENT: unremarkable Heart: RSR Lungs: clear to auscultatio n Abdomen: soft and nontender Extremities: no leg edema General Appearance: NAD Skin: normal, some erythem atous rash of the elbows Neurologic Exam: Intact, gait normal Neck: supple, no lymphaden opathy Oral cavity: no lesions, mucosa m oist and WNL, no erythema Peripheral pulses: normal (2+) bilatera lly Chest: normal shape and exp ansion
--- OUTSIDE RECORDS SUMMARY | 2024-11-07 07:15 | XMS_ITS ---
Author Organization [facility] Address [address] [facility] [address] [place] [id number] Care Team Providers Care Movie Theater Manager Name Role Phone Cinthya Mackenzie Primary Care Provider [phone] Cinthya MACKENZIE Unavailable Unavailable Allergies Allergen (clinical drug ingredient) Drug/Non Drug Allergy documented on EMR Reaction Allergy Type Onset Date Status TEVA - ANTIBIOTIC (uncoded) stomach upset Allergy Active REASON FOR VISIT 3 month check up Medications Medication SIG (Take, Route, Frequency, Duration) Notes Start Date End Date Status Phentermine HCl 37.5 MG 1 cap(s) orally once a day for 30 day(s) 11/07/2024 Active Atorvastatin Calcium 20 MG TAKE 1 TABLET AT BEDTIME for 90 Active Synthroid 25 MCG TAKE 1 TABLET ONCE D AILY for 90 Active Flonase Allergy Relief 50 MCG/ACT as directed in each nostril once a day for 30 day(s) 07/18/2021 Active Cryselle-28 0.3-30 MG-MCG 1 tab(s) orall y once a day 09/04/2019 Active Vital Signs Blood pressure systolic 122 mm Hg 11/08/19 25 Blood pressure diastolic 90 mm Hg 025 Heart Rate 69 /min 11/07/2024 Height 62 in 11/07/2024 Weight 195.0 lbs 11/07/2024 BMI 35.66 kg/m2 11/07/2024 Encounters Encounter Location Date Provider Diagnosis [facility] [address] [facility] [address] [place] [id number] 11/07/2024 Cinthya Mackenzie BMI 35.0-35.9,adult Z68.35 Assessments Encounter Date Diagnosis (ICD Code) Assessment Notes Treatment Notes Treatment Clinical Notes Section Notes 11/07/2024 BMI 35.0-35.9,adult (ICD-10 - Z68.35) Ozempic sample given Plan Of Treatment Medication Medication Name Sig Start Date Stop Date Notes Phentermine HCl 37.5 MG 1 cap(s) orally once a day for 30 day(s) 11/07/2024 Treatment Notes Assessment Notes BMI 35.0-35.9,adult Ozempic sample given Next Appt Details Follow Up: 3 Months, Reason: Provider Name:Cinthya Mcmahon er, 04/13/2025 03:45:00 PM, [address], [address], [place], [place], [phone], Progress Notes * SERAFIN YEDOB:1980 ([age] yo F)Acc No.[id number]:11/07/2024 Progress Notes Patient: SERAFIN CAPONE Provider: Cinthya Mackenzie M.D. :1980 A ge:44 Y S ex:Female Date:11/07/2024 Address:[address] [place] [address], [id number] Subjective: * Chief Complaints: * 1 . 3 month check up. * HPI: C onstitutional: The pt is here for a check up on weight management. Pt states she is taking the Phentermine as directed and denies any medication side effects. Pt states she is needing a refill sent to [facility] in [place]. 44 year old female presents with c/o Weight gain. * ROS: D ERMATOLOGY: no R artie. [...] ANTIBIOTIC: stomach upset. Objective: * Vitals: W t:195.0, Temp:98.3, BP:122/90, HR:69, Nurse:COY, Ht: 62, BMI:35.66. * Examination: G eneral Examination: General Appearance: N AD. HEENT: u nremarkable. Oral cavity: n o lesions, mucosa moist and WNL, no erythema. Neck: s upple, no lymphadenopathy. Chest: n ormal shape and expansion. Heart: R SR. Lungs: c lear to auscultation. Abdomen: soft and nontender. Neurologic Exam: I ntact, gait normal. Skin: n ormal, no rash. Peripheral pulses: n ormal (2+) bilaterally. Extremities: n o leg edema. Assessment: * Assessment: 1. B NH 35.0-35.9,adult - Z68.35 (Primary) Plan: * Treatment: * Procedure Codes: 3 074F SYST BP LT 130 MM HG, 3080F DIAST BP = 90 MM HG * Follow Up: 3 Months * Billing Information: * Visit Code: 41171 Office Visit, Est Pt., Level 3. * Procedure Codes: 3074F SYST BP LT 130 MM HG. 3080F DIAST BP = 90 MM HG. * Electronic signature of Cinthya Mackenzie MD on 02/16/2025 at 10:26 AM EDT Sign off status: Pending * Provider: Cinthya Mackenzie M.D. Date: 0 11/07/2024 Generated for Brandeei mary/Aceg/eTransmitting on: 0 02/16/2025 10:26 AM EDT History and Physical Notes * HPI (History of Present Illness) Category Sub-Category Detail Notes Category Not es Constitutional Weight gain Examination Category Sub-Category Detail Notes Category Not es General Examination HEENT: unremarkable Heart: RSR Lungs: clear to auscultatio n Abdomen: soft and nontender Extremities: no leg edema General Appearance: NAD Skin: normal, no rash Neurologic Exam: Intact, gait normal Neck: supple, no lymphaden opathy Oral cavity: no lesions, mucosa m oist and WNL, no erythema Peripheral pulses: normal (2+) bilatera lly Chest: normal shape and exp ansion
--- OUTSIDE RECORDS SUMMARY | 2025-02-06 07:15 | XMS_ITS ---
[facility] Address [address] [facility] [address] [place] [id number] Care Team Providers Care Document Advisor Name Role Phone Cinthya Mackenzie Primary Care Provider [phone] Cinthya MACKENZIE Unavailable Unavailable Allergies Allergen (clinical drug ingredient) Drug/Non Drug Allergy documented on EMR Reaction Allergy Type Onset Date Status TEVA - ANTIBIOTIC (uncoded) stomach upset Allergy Active Results Component Value Reference Range Notes Glycohemoglobin A1c (in hous e) (Not yet reviewed by provider) Interpretation: Performing Lab: Notes/Report: glycohemoglobin 5.0% 5 - 6.5 % P-Comprehensive Metabolic Pa abbey (CMP) (Not yet reviewed by provider) Interpretation: Performing Lab: Notes/Report: Test performed by [facility] [address] [place] [address] , [address], [place] [address] MD, Maintenance And Custodian Supervisor CLIA: [id number] Sodium 141 135-145 mmol/L Potassium 4.7 3.5-5.3 mmol/L Chloride 107 97-108 mmol/L CO2 23 22-32 mmol/L Glucose 81 65-99 mg/dL BUN 12 6-20 mg/dL Creatinine 0.77 0.50-1.00 mg/dL Calcium 9.4 8.6-10.4 mg/dL eGFR by Creatinine 98 >59 mL/min/1.73m2 Protein 7.2 6.0-8.3 g/dL Albumin 4.2 3.5-5.3 g/dL Alkaline Phosphatase 134 35-121 IU/L ALT (SGPT) 23 <5-47 IU/L AST (SGOT) 22 <5-40 IU/L Bilirubin, Total 0.5 <0.2-1.2 mg/dL A/G Ratio 1.4 1.1-2.5 P-Lipid Panel (Not yet revie wed by provider) Interpretation: Performing Lab: Notes/Report: Test performed by [facility], [address] , [address], [place] [address] MD, Maintenance And Custodian Supervisor CLIA: [id number] Cholesterol 159 <200 mg/dL Triglycerides 96 <150 mg/dL HDL Cholesterol 41 >39 mg/dL Cholesterol / HDL Ratio 3.88 0.00-4.44 Ratio Non-HDL Cholesterol 118 <130 mg/dL LDL Cholesterol (Calculation) 99 <130 mg/dL LDL Cholesterol Levels* Less than 100 mg/dL Optimal 100 to 129 mg/dL Near Optimal/ Above Optimal 130 to 159 mg/dL Borderline High 160 to 189 mg/dL High 190 mg/dL and above Very High * Categories as recommended by the 2004 ATPIII guidelines LDL/HDL Ratio 2.4 <3.3 Ratio LDL Cholesterol Patient History Test Date: 12/06/2023 LDL Results: 92 Units: mg/dL % Change: - Test Date: 02/06/2025 LDL Results: 99 Units: mg/dL % Change: +7% P-TSH (Not yet reviewed by zabrina arciniega) Interpretation: Performing Lab: Notes/Report: Test performed by [facility] , [address], [place] [address] MD, Maintenance And Custodian Supervisor CLIA: [id number] TSH 2.54 0.43-5.25 mU/L REASON FOR VISIT fasting 3 month check Medications Medication SIG (Take, Route, Frequency, Duration) Notes Start Date End Date Status Atorvastatin Calcium 20 MG TAKE 1 TABLET AT BEDTIME for 90 Active Phentermine HCl 37.5 MG 1 cap(s) orally once a day for 30 day(s) 02/06/2025 Active Synthroid 25 MCG TAKE 1 TABLET ONCE D AILY for 90 Active Flonase Allergy Relief 50 MCG/ACT as directed in each nostril once a day for 30 day(s) 07/18/2021 Active Cryselle-28 0.3-30 MG-MCG 1 tab(s) orall y once a day 09/04/2019 Active Problems Problem Type SNOMED Code ICD Code Onset Dates Problem Status W/U Status Risk Notes Problem [id number] Body mass index [BMI] 37.0-37.9, adult (Z68.37) Active confirmed Vital Signs Blood pressure systolic 124 mm Hg 02/07/20 25 Blood pressure diastolic 90 mm Hg 025 Heart Rate 67 /min 02/06/2025 Height 62 in 02/06/2025 Weight 202.8 lbs 02/06/2025 BMI 37.09 kg/m2 02/06/2025 Encounters Encounter Location Date Provider Diagnosis [facility] [address] [place] [phone] 02/06/2025 Cinthya Mackenzie Acquired hypothyroid ism E03.9 ; Hyperlipidemia, unspecified hyperlipidemia type E78.5 ; Diabetes mellitus screening Z13.1 ; Body mass index [BMI] 37.0-37.9, adult Z68.37 and Obesity, class 2 E66.812 Assessments Encounter Date Diagnosis (ICD Code) Assessment Notes Treatment Notes Treatment Clinical Notes Section Notes 02/06/2025 Acquired hypothyroidism (ICD-10 - E03.9) 02/06/2025 Hyperlipidemia, unspecified hyperlipidemia type (ICD-10 - E78.5) 02/06/2025 Diabetes mellitus screening (ICD-10 - Z13.1) 02/06/2025 Body mass index [BMI] 37.0-37.9, adult (ICD-10 - Z68.37) Ozempic sample 02/06/2025 Obesity, class 2 (ICD-10 - E66.812) Plan Of Treatment Medication Medication Name Sig Start Date Stop Date Notes Phentermine HCl 37.5 MG 1 cap(s) orally once a day for 30 day(s) 02/06/2025 Treatment Notes Assessment Notes Body mass index [BMI] 37.0-37.9, adult O zempic sample Pending Test Test Name Order Date Glycohemoglobin A1c (in house) P-Comprehensive Metabolic Panel (CMP) P-Lipid Panel 02/06/2025 P-TSH 02/06/2025 Next Appt Details Follow Up: 2 Months, Reason: Provider Name:Cinthya Mcmahon er, 04/13/2025 03:45:00 PM, [address] [facility], [address], [phone], Progress Notes * SERAFIN YEDOB:1980 ([age] yo F)Acc No.[id number]:02/06/2025 Progress Notes Patient: SERAFIN CAPONE Provider: Cinthya Mackenzie M.D. :1980 A ge:44 Y S ex:Female Date:02/06/2025 Address:[address] [place] [address] [id number] Subjective: * Chief Complaints: * 1 . Fasting 3 month check. * HPI: C ardiology: The pt is here for a check up on Hyperlipidemia and Hypothyroidism. Pt states she is doing good and denies any new concerns. Pt is fasting. Pt states refills are not needed at this time. Denies : Chest Pain. D enies : Short of Breath. D enies : Dizziness. D enies : Palpitations. * ROS: D ERMATOLOGY: no R artie. [...] ANTIBIOTIC: stomach upset. Objective: * Vitals: W t: 202.8, Temp: 98.1, BP: 124/90, HR: 67, Nurse: COY, Ht: 62, BMI:37.09. * Examination: G eneral Examination: General Appearance: N AD, note weight gain. HEENT: u nremarkable. Oral cavity: n o lesions, mucosa moist and WNL, no erythema. Neck: s upple, no lymphadenopathy. Chest: n ormal shape and expansion. Heart: R SR, no ectopics. Lungs: c lear to auscultation. Abdomen: soft and nontender. Neurologic Exam: I ntact, gait normal. Skin: n ormal, no rash. Peripheral pulses: n ormal (2+) bilaterally. Extremities: n o leg edema. Assessment: * Assessment: 1. A cquired hypothyroidism - E03.9 (Primary) 2 . H yperlipidemia, unspecified hyperlipidemia type - E78.5 3 . D iabetes mellitus screening - Z13.1 ? 4 . B christine mass index [BMI] 37.0-37.9, adult - Z68.37 5 . O besity, class 2 - E66.812 Plan: * Treatment: Value Reference Range T SH 2.54 0.43-5.25 - mU/L 2.?Hyperlipidemia, unspecified hyperlipidemia type?LAB: P-Lipid Panel (Collection Date & Time - 02/06/2025 12:27 PM)* Value Reference Range C holesterol / HDL Ratio 3.88 0.00-4.44 - Ratio * C holesterol 159 <200 - mg/dL * H DL Cholesterol 41 >39 - mg/dL * L DL Cholesterol (Calculation) 99 <130 - mg/d L * L DL/HDL Ratio 2.4 <3.3 - Ratio * N on-HDL Cholesterol 118 <130 - mg/dL * T riglycerides 96 <150 - mg/dL 3.?Diabetes mellitus screening?LAB: P-Comprehensive Metabolic Panel (CMP) (Collection Date & Time - 02/06/2025 12:27 PM)* Value Reference Range A /G Ratio 1.4 1.1-2.5 - * A lbumin 4.2 3.5-5.3 - g/dL * A lkaline Phosphatase 134 H 35-121 - IU/L * A LT (SGPT) 23 <5-47 - IU/L * A ST (SGOT) 22 <5-40 - IU/L * B ilirubin, Total 0.5 <0.2-1.2 - mg/dL * B UN 12 6-20 - mg/dL * C alcium 9.4 8.6-10.4 - mg/dL * C hloride 107 97-108 - mmol/L * C O2 23 22-32 - mmol/L * C reatinine 0.77 0.50-1.00 - mg/dL * G lucose 81 65-99 - mg/dL * P otassium 4.7 3.5-5.3 - mmol/L * S odium 141 135-145 - mmol/L * P rotein 7.2 6.0-8.3 - g/dL * e GFR by Creatinine 98 >59 - mL/min/1.73m2 ?LAB: Glycohemoglobin A1c (in house) (Collection Date & Time - 02/06/2025)* Value Reference Range g lycohemoglobin 5.0% 5 - 6.5 % * Kinsey Brink Nathanael 02/06/2025 11 :33:12 AM EDT > Provider reviewed results while patient in office. 4.?Body mass index [BMI] 37.0-37.9, adult? Refill Phentermine HCl Capsule, 37.5 MG, 1 cap(s), orally, once a day, 30 day(s), 30 Capsule, Refills 1.?? Notes: Ozempic sample?? * Procedure Codes: 8 3036 GLYCATED HEMOGLOBIN TEST, Modifiers: QW , 1036F TOBACCO NON-USER, 3044F HG A1C LEVEL LT 7.0%, G8752 MOST RECENT SYSTOLIC BP < 140MM HG, G8755 MOST RECENT DIASTOLIC BP >= 90MM HG * Follow Up: 2 Months * Billing Information: * Visit Code: 58787 Office Visit, Est Pt., Level 4. * Procedure Codes: 91819 GLYCATED HEMOGLOBIN TEST. Modifiers: QW 1036F TOBACCO NON-USER. 3044F HG A1C LEVEL LT 7.0%. G8752 MOST RECENT SYSTOLIC BP < 140MM HG. G8755 MOST RECENT DIASTOLIC BP >= 90MM HG. * Electronic signature of Cinthya Mackenzie MD on 02/16/2025 at 10:26 AM EDT Sign off status: Pending * Provider: Cinthya Mackenzie M.D. Date: 0 02/06/2025 Generated for Papi hernandez/Dominique/Miltonitting on: 0 02/16/2025 10:26 AM EDT History and Physical Notes * HPI (History of Present Illness) Category Sub-Category Detail Notes Category Not es Cardiology Short of Breath Chest Pain Palpitations Dizziness Examination Category Sub-Category Detail Notes Category Not es General Examination HEENT: unremarkable Heart: RSR, no ectopics Lungs: clear to auscultatio n Abdomen: soft and nontender Extremities: no leg edema General Appearance: NAD, note weight gai n Skin: normal, no rash Neurologic Exam: Intact, gait normal Neck: supple, no lymphaden opathy Oral cavity: no lesions, mucosa m oist and WNL, no erythema Peripheral pulses: normal (2+) bilatera lly Chest: normal shape and exp ansion
--- NOTE | 2025-02-16 10:05 | XR_ITS ---
FINAL REPORT CLINICAL HISTORY: Left wrist pain radiates up and down FINDINGS: LEFT WRIST Three views demonstrate no acute fracture or dislocation. The visualized joint spaces are normally aligned. The soft tissues are unremarkable. IMPRESSION: No acute bony abnormality. Reviewed, Interpreted and Dictated by Brett France MD Transcribed by Patricia Rich Authenticated and . [facility]
--- NOTE | 2025-02-16 10:05 | XR_ITS ---
FINAL REPORT CLINICAL HISTORY: right wrist pain radiates up to elbow, down into hand FINDINGS: RIGHT WRIST Three views demonstrate no acute fracture or dislocation. The visualized joint spaces are normally aligned. The soft tissues are unremarkable. IMPRESSION: No acute bony abnormality. Reviewed, Interpreted and Dictated by Brett France MD Transcribed by Patricia Rich Authenticated and [facility]
--- OUTSIDE RECORDS SUMMARY | 2025-02-16 10:26 | XMS_ITS | Patient Health Record ---
[facility] Address [address] [place] [phone] Care Team Providers Care Senior Software Developer Name Role Phone Cinthya Mackenzie Primary Care Provider Cnithya MACKENZIE Unavailable Unavailable Allergies Allergen (clinical drug [...] Interpretation: Performing Lab: Notes/Report: Test performed by [facility] [address] [place] [address] , [address], [place] [address] MD, Radiology Technologist CLIA: [id number] Sodium 141 135-145 mmol/L Potassium 4.7 3.5-5.3 [...] Interpretation: Performing Lab: Notes/Report: Test performed by [facility] [address] [place] [address] , [address], [place] [address] MD, Radiology Technologist CLIA: [id number] Cholesterol 159 <200 mg/dL Triglycerides 96 <150 [...] Interpretation: Performing Lab: Notes/Report: Test performed by 2,[id number]+[id number] , [place] [address] MD, Radiology Technologist CLIA: [id number] TSH 2.54 0.43-5.25 mU/L P-Comprehensive Metabolic Pa ab[place] (CMP) Reviewed date:05/12/2024 10:01:49 AM Interpretation:alk phos 134 Performing Lab: Notes/Report: Test performed by [facility] [address] [place] [address] [address], [place] [address] MD, Radiology Technologist CLIA: [id number] Sodium 138 135-145 mmol/L Potassium 4.9 3.5-5.3 mmol/L Chloride 105 97-108 mmol/L CO2 22 22-32 mmol/L Glucose 81 65-99 mg/dL BUN 13 6-20 mg/dL Creatinine 0.78 0.50-1.00 mg/dL Calcium 9.7 8.6-10.4 mg/dL eGFR by Creatinine 97 >59 mL/min/1.73m2 Protein 7.1 6.0-8.3 g/dL Albumin 4.2 3.5-5.3 g/dL Alkaline Phosphatase 134 35-121 IU/L ALT (SGPT) 20 <5-47 IU/L AST (SGOT) 21 <5-40 IU/L Bilirubin, Total 0.4 <0.2-1.2 mg/dL A/G Ratio 1.4 1.1-2.5 HEPACUTE Reviewed date:08/04/2024 10:04:20 AM Interpretation: Normal Performing Lab: Notes/Report: HEPAM Negative Negative A negative anti-HAV IgM result suggests no recent or current HAV infection. HBSAG Negative Negative HBCM Negative Negative HCVAB2 Non Reactive Non Reactive HCVTI Comment . Not infected with HCV unless early or acute infection is suspected (which may be delayed in an immunocompromised individual), or other evidence exists to indicate HCV infection. Performed at: [facility] [address] [id number] Carpet Cutter: Jagjit Jurado PhD, Phone: [phone] H-Hepatitis Panel Reviewed date:08/04/2024 09:08:25 AM Interpretation: Performing Lab: Notes/Report: H-CMP Reviewed date:08/04/2024 10:04:52 AM Interpretation: Normal [...] AGRATIO 1.5 1.1-1.8 ALP 121 38-126 U/L H-Quantiferon TB Reviewed date:08/07/2024 01:05:38 PM Interpretation:Negative [...] interferon gamma. Chemiluminescence immunoassay methodology Performed at: [facility] [id number] Carpet Cutter: Jagjit Jurado PhD, Phone: [phone] H-CBC Reviewed date:08/04/2024 10:04:35 AM Interpretation: Normal [...] 0.1 0.0-0.4 K/mm3 BA# 0.1 0-0.2 K/mm3 Reason For Referral No Information Medications Medication SIG (Take, Route, Frequency, Duration) [...] orall y once a day 09/04/2019 Active Immunizations Vaccine Route Administration Date Status Comme nts Hepatitis A (adult) Unknown 08/02/2018 Administered Hepatitis A (adult) Unknown 02/06/2019 Administered Fluzone PF Quad (6-35 months) Unknown 05/30/2019 Admini stered COVID 19 Pfizer Unknown 05/14/2021 Administered COVID 19 Pfizer Unknown 06/18/2021 Administered Problems Problem Type SNOMED Code ICD Code Onset Dates Problem Status W/U Status Risk Notes Problem 0289520 Psoriasis (L40.9) Active confirmed Problem 014960549 BMI 35.0-35.9,ad ult (Z68.35) Active confirmed Problem 918937897 Acquired hypothyroidism (E03.9) Active confirmed Problem 454087239 BMI 36.0-36.9,ad ult (Z68.36) Active confirmed Problem 169224510 BMI 38.0-38.9,ad ult (Z68.38) Active confirmed Problem 24260289 Hyperlipidemia, unspecified hyperlipidemia type (E78.5) Active confirmed Problem 493111298 BMI 34.0-34.9,ad ult (Z68.34) Active confirmed Problem 955855237 BMI 37.0-37.9, adult (Z68.37) Active confirmed Problem 341392029 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) Active confirmed Problem 44951923 Non-seasonal allergic rhinitis, unspecified trigger (J30.89) Active confirmed Problem 644297746 Body mass index [BMI] 37.0-37.9, adult (Z68.37) Active confirmed Vital Signs Heart Rate 67 /min 02/06/2025 Blood pressure diastolic 90 mm Hg 02/06/2025 Height 62 in 02/06/2025 Blood pressure systolic 124 mm Hg 02/06/2025 Weight 202.8 lbs 02/06/2025 BMI 37.09 kg/m2 02/06/2025 Encounters Encounter Location Date Provider Diagnosis [facility] [address] [place] [id number] 05/02/2024 Cinthya Mackenzie BMI 35.0-35.9,adult Z68.35 and Acquired hypothyroidism E03.9 [facility] [address] [facility] [address] [place] [id number] 06/13/2024 J Jr Mackenzie BMI 36.0-36.9,adult Z68.36 and Weight gain R63.5 [facility] [address] [facility] [address] [place] [id number] 08/01/2024 J Jr Mackenzie BMI 35.0-35.9,adult Z68.35 and Weight gain R63.5 [facility] [address] [facility] [address] [place] [id number] 11/07/2024 J Jr Johny BMI 35.0-35.9,adult Z68.35 [facility] [address] [facility] [address] [place] [id number] 02/06/2025 Cinthya Norris Johny Acquired hypothyroid ism E03.9 ; Hyperlipidemia, unspecified hyperlipidemia type E78.5 ; Diabetes mellitus screening Z13.1 ; Body mass index [BMI] 37.0-37.9, adult Z68.37 and Obesity, class 2 E66.812 [facility] [address] [facility] [address] [place] [id number] 03/20/2024 Cinthya Mackenzie BMI 38.0-38.9,adult Z68.38 [facility] [address] [facility] [address] [place] [id number] 05/12/2024 Cinthya Jr Mackenzie [facility] [address] [facility] [address] [place] [id number] 10/24/2024 J Jr Johny BMI 35.0-35.9,adult Z68.35 [facility] [address] [facility] [address] [place] [id number] 01/26/2025 J Jr Johny BMI 35.0-35.9,adult Z68.35 Assessments Encounter Date Diagnosis (ICD Code) Assessment Notes Treatment Notes Treatment Clinical Notes Section Notes 03/20/2024 BMI 38.0-38.9,adult (ICD-10 - Z68.38) 05/02/2024 BMI 35.0-35.9,adult (ICD-10 - Z68.35) Sample of [facility] given. 05/02/2024 Acquired hypothyroidism (ICD-10 - E03.9) 06/13/2024 BMI 36.0-36.9,adult (ICD-10 - Z68.36) [facility] 08/01/2024 BMI 35.0-35.9,adult (ICD-10 - Z68.35) 10/24/2024 BMI 35.0-35.9,adult (ICD-10 - Z68.35) 11/07/2024 BMI 35.0-35.9,adult (ICD-10 - Z68.35) [facility] 01/26/2025 BMI 35.0-35.9,adult (ICD-10 - Z68.35) 02/06/2025 Acquired hypothyroidism (ICD-10 - E03.9) 02/06/2025 Hyperlipidemia, unspecified hyperlipidemia type (ICD-10 - E78.5) 02/06/2025 Diabetes mellitus screening (ICD-10 - Z13.1) 08/01/2024 Weight gain (ICD-10 - R63.5) 06/13/2024 Weight gain (ICD-10 - R63.5) 02/06/2025 Body mass index [BMI] 37.0-37.9, adult (ICD-10 - Z68.37) [facility] 02/06/2025 Obesity, class 2 (ICD-10 - E66.812) Plan Of Treatment Pending Test Test Name Order Date Glycohemoglobin A1c (in house) P-Comprehensive Metabolic Panel (CMP) P-Lipid Panel 02/06/2025 P-TSH 02/06/2025 Next Appt Details Provider Name:Cinthya Mcmahon er, 04/13/2025 03:45:00 PM, [address], [place], [place], [id number], Insurance Providers Payer Name Payer Address Payer Phone Subscriber Number Group Number Insured Name Patient Relationship to Insured Coverage Start Date Coverage End Date [facility] [address] [address] [place] [phone] [id number] SERAFIN YE Self - patient is the insured Medical (General) History Medical History History ICD Code psoriasis Surgical History Surgery Date(Month/Year) tubal ligation 2013 wisdom teeth extractions x3 Hospitalization History Reason Date(Month/Year) child x 2
== END 2025-02-16 23:59 | disposition home or self-care (01) ==
LOC: RAD 10:02
PROVIDERS: PCP Family Medicine; Visit Provider Physician Assistant
DX: M25.532 Pain in left wrist (principal); M25.531 Pain in right wrist
CPT/HCPCS: 73110